=== PATIENT | female | born 1945 | race Caucasian/White ===

== ENCOUNTER 2016-12-12 23:36 | Inpatient (IN) | payer MEDICARE ==
[~2016-12-12] VITALS: Ht 167.6 cm; Wt 68.0 kg
--- NOTE | ~2016-12-12 | PR ---
[place], [place] PROGRESS NOTE NAME: LEYDA EASON UNIT #: [id number] ROOM: 309 DOCTOR: Ivette ZAIDI,TITA BIRTHDATE: [birth year] DOS: 12/18/2016 SUBJECTIVE: The patient seen and spoke with the staff. Per staff, the patient was agitated, was screaming and also got IM injection. pleasant and cooperative. In the morning, she looks a little bit sedated as she got IM injection last night. Reports doing okay, did not answer any of my question. She is taking her medication regularly and did not have any side effect from the medication also. MENTAL STATUS EXAMINATION: The patient was pleasant and cooperative. She was alert, a little bit sleepy, not oriented to place and person. Described her mood as . Affect was sleepy, tired. Thought processes with confabulation. Denied auditory or visual hallucination. No delusion or paranoia noted. She denied suicidal ideation, intent or plan. She also denied homicidal ideation, intent or plan. ASSESSMENT: Dementia with delusion. PLAN: 1. Continue current medications and care. 2. Continue redirection. 3. Encourage activity and groups. TITA ZAIDI MD CM:MALLORY [id number] Ivette ZAIDI 12/19/165 interface
--- NOTE | ~2016-12-12 | PR ---
[place], [place] PROGRESS NOTE NAME: LEYDA EASON UNIT #: [id number] ROOM: 309 DOCTOR: Ivette ZAIDI,TITA BIRTHDATE: [birth year] DOS: 12/19/2016 SUBJECTIVE: The patient seen and spoke with the staff. Per staff, the patient slept all day, but in the afternoon, she tried to climb out of the chair, hard to redirect at times. The patient was pleasant, cooperative. She seems to be sleepy. She was sleeping on the Jessica chair. When I called her name, she just looked at me and said that she is doing "fine" but then fall back to sleep again. She does not seem to be in any distress. MENTAL STATUS EXAMINATION: The patient was sleepy, not in any distress, not able to do full mental status examination because of increased sedation. ASSESSMENT: Alzheimer dementia with behavioral disturbances. PLAN: 1. Continue current medication. 2. If the patient remained sleepy like this, we may plan on reducing the Depakote tomorrow the a.m. Depakote, but continue the night one 500 mg at night. 3. Continue redirection. 4. Supportive care. TITA ZAIDI MD CM:MALLORY 99 1 Ivette ZAIDI 12/20/16131 interface
--- NOTE | ~2016-12-12 | PR ---
[place], [place] PROGRESS NOTE NAME: LEYDA EASON UNIT #: [id number] ROOM: 309 DOCTOR: Ivette ZAIDI,TITA BIRTHDATE: [birth year] DOS: 12/21/2016 SUBJECTIVE: Patient seen and spoke with the staff. Per staff, patient is doing better. She ate 50%, no p.r.n. last night, slept all night. The patient was pleasant, cooperative. She was in the day area and in Jessica chair. When I asked her, today she answered. She said that "not bad." She reports good sleep and appetite. She was not in distress. MENTAL STATUS EXAMINATION: The patient was pleasant, cooperative. Described her mood as "not bad." Affect, mood congruent. Thought processes with confabulation. She denied auditory or visual hallucination. No delusion or paranoia noted. She denied suicidal ideation, intent or plan. She also denied homicidal ideation, intent or plan. ASSESSMENT: Alzheimer's dementia with behavioral disturbances. PLAN: 1. Continue current medication and care. 2. Continue redirection. 3. Supportive care. TITA ZAIDI MD CM:MALLORY [id number] Ivette ZAIDI 12/21/16 1309 interface
--- NOTE | ~2016-12-12 | PR ---
[place], [place] PROGRESS NOTE NAME: LEYDA EASON UNIT #: [id number] ROOM: 309 DOCTOR: Ivette ZAIDI,TITA BIRTHDATE: [birth year] DOS: 12/16/2016 PSYCHIATRIC PROGRESS NOTE. SUBJECTIVE: The patient seen and chart reviewed and I spoke with the staff. Per staff, the patient is doing better than before now. She gets agitated at times, but easily redirected. She refused her medication last night. No other behavioral problems or issues. The patient was pleasant and cooperative. She was in the day area. She reports doing "good." She said that she is hungry. She is taking her medications regularly and denied any side effect. MENTAL STATUS EXAMINATION: The patient was pleasant and cooperative. She was alert, not oriented to date, month and year. Speech: Low tone. She described her mood as "good." Affect, mood congruent. Thought processes with confabulation. Denied auditory or visual hallucination. No delusion or paranoia noted. She denied any suicidal ideation, intent or plan. She also denied any homicidal ideation, intent or plan. Insight and judgment impaired. ASSESSMENT: Dementia with behavioral disturbances. PLAN: 1. Continue current medication and care. Dr. Leung is switching her from Aricept to Exelon. We need to see the effect of it. 2. Continue redirection. 3. Maximize and titrate the medication if needed to stabilize the patient. TITA ZAIDI MD CM:PNAMY [id number] Ivette ZAIDI 12/16/16 2340 interface
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
--- NOTE | ~2016-12-12 | PR ---
[place], [place] PROGRESS NOTE NAME: LEYDA EASON UNIT #: [id number] ROOM: 309 DOCTOR: JYOTI BOWENS MD BIRTHDATE: [birth year] DOS: 12/14/2016 INTERVAL NOTE CHIEF COMPLAINT: "Good morning." SUMMARY OF THE VISIT: The patient was interviewed in her bedroom. She was resting quietly in bed. She kept her eyes closed for the most part. She did open them briefly when I called out her name. She whispered very quietly, responses to me that were soft and simple, very short and at times inappropriate. There was no agitation or aggression noted; however, she was pleasant for the most part during the interview process. MENTAL STATUS: She remains alert and oriented to self. It is unclear if she realizes she is in the hospital. She is certainly not oriented to time. Mood does still seem to be somewhat labile at times and affect at times is inappropriate. She has a great deal of processing difficulty and short term memory is exceedingly poor. PLAN: I will increase Exelon patch from 4.6 mg to 9.5 mg a day. I will also check a valproic acid level in the a.m. to tract that it is therapeutic. We will engage in individual and francisco milieu activity, returning to the least restrictive environment when psychiatrically stable. JYOTI BOWENS MD CM:PNTRANS [phone] JYOTI BOWENS MD 12/14/16 1004 interface
--- NOTE | ~2016-12-12 | PR ---
[place], [place] PROGRESS NOTE NAME: LEYDA EASON UNIT #: [id number] ROOM: 309 DOCTOR: Ivette ZAIDI,TITA BIRTHDATE: [birth year] DOS: 12/22/2016 SUBJECTIVE: Patient seen and spoke with the staff. Per staff, patient ate 50%, no p.r.n. last night, slept well, no other behavioral problems or issues. She yells at a time per staff, but easily redirectable. The patient was in the Jessica chair close to the nursing station, she reports doing good. Denied any problem. She was not in any distress. She is medication compliant and did not have any side effect. MENTAL STATUS EXAMINATION: The patient was somewhat sleepy. Described her mood as "good." Affect and mood congruent. Not in distress. Thought processes with confabulation. Denied auditory or visual hallucination. No delusion or paranoia noted. Denied suicidal ideation, intent or plan. She also denied homicidal ideation, intent or plan. Insight, judgment impaired. ASSESSMENT: Alzheimer's dementia with behavioral disturbances. PLAN: 1. Continue current medication. 2. Continue redirection. 3. Supportive care. TITA ZAIDI MD CM:PNAMY [id number] Ivette ZAIDI 12/23/16 1406 interface
--- NOTE | ~2016-12-12 | PR ---
[place], [place] PROGRESS NOTE NAME: LEYDA EASON UNIT #: [id number] ROOM: 309 DOCTOR: Ivette ZAIDI,TITA BIRTHDATE: [birth year] DOS: 12/17/2016 SUBJECTIVE: The patient seen and spoke with the staff. Per staff, the patient was anxious in the morning, got p.r.n. Ativan and seems to be worse today. Per staff, the patient was yelling earlier. The patient was pleasant, cooperative. She was in her room. She said that "I'm fine," but then did not answer any of my questions. She seems not to be in any distress. She is compliant with her medication. MENTAL STATUS EXAMINATION: The patient was pleasant, cooperative. Described her mood as "okay." Affect, mood congruent. Thought processes with confabulation. Denied auditory or visual hallucinations. No overt delusion or paranoia noted. She denied suicidal ideation, intent or plan. She also denied homicidal ideation, intent or plan. Insight and judgment impaired. ASSESSMENT: Dementia with delusion. PLAN: 1. Continue current medications and care. 2. Continue redirection. 3. Supportive care. TITA ZAIDI MD CM:PNTRANS [phone] Ivette ZAIDI 12/18/16109 interface
--- NOTE | ~2016-12-12 | PR ---
[place], [place] PROGRESS NOTE NAME: LEYDA EASON UNIT #: [id number] ROOM: 309 DOCTOR: Ivette ZAIDI,TITA BIRTHDATE: [birth year] DOS: 12/23/2016 PSYCHIATRIC PROGRESS NOTE SUBJECTIVE: The patient seen and spoke with the staff. Per staff, the patient is doing better than before. She yells out at times, but no other behavior problems or issues. She did not receive any medication. The patient was pleasant, cooperative. She was in the dining area in a Jessica chair. When I called her name, she actually got up and said that she is doing "fine." Then she said that she is tired of waiting. When I asked said that what she is waiting for, she did not answer any of my questions. She was not in any distress. She reports good sleep and appetite. MENTAL STATUS EXAMINATION: The patient was pleasant, cooperative, described her mood as "okay." Affect, mood congruent. Thought processes with confabulation. She denied auditory or visual hallucination. No delusion or paranoia noted. She denied suicidal ideation, intent or plan. She also denied homicidal ideation, intent or plan. ASSESSMENT: Alzheimer dementia with behavioral disturbances. PLAN: 1. Continue current medication and care. 2. Continue redirection. 3. Discharge planning. TITA ZAIDI MD CM:MALLORY [id number] Ivette ZAIDI 12/23/16 1313 interface
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
--- NOTE | ~2016-12-12 | PR ---
[place], [place] PROGRESS NOTE NAME: LEYDA EASON UNIT #: [id number] ROOM: 309 DOCTOR: Ivette ZAIDI,TITA BIRTHDATE: [birth year] DOS: 12/20/2016 PSYCHIATRIC PROGRESS NOTE SUBJECTIVE: The patient seen and spoke with the staff. Per staff, the patient slept 5-6 hours yesterday, somewhat agitated, got p.r.n. After that, she slept all night. When I went to see the patient, she was in a Jessica chair close to the nursing station, she was sleeping deep. When I called her name, she got up and said she is doing "okay," but then fell back to sleep again. She was not able to answer any of my question. MENTAL STATUS EXAMINATION: The patient was pleasant, cooperative. She was sleepy. She woke up. She described her mood as "okay" and then fell back to sleep again. She was not in any distress, not able to do full mental status examination. ASSESSMENT: Dementia with behavioral disturbances. PLAN: 1. I will reduce her morning Depakote to 250 mg. 2. I will change her bedtime Depakote at 6:00 p.m. 3. Continue redirection. 4. Supportive care. TITA ZAIDI MD CM:MALLORY 2 Ivette ZAIDI 12/20/16922 interface
[2016-12-13] MEDS ORDERED: HYDROCHLOROTH12.5 M3 PO (00:26)
[2016-12-13] MEDS ORDERED: NAMZARIC 28 MG1 EACH PO (00:27)
[2016-12-13] MEDS ORDERED: B121000 MCG/1 IM (00:30)
[2016-12-13] MEDS ORDERED: TOPROL XL50 M1 PO (00:32)
[2016-12-13] MEDS ORDERED: RISPERIDONE0.5 MG PO (00:39)
[2016-12-13] MEDS ORDERED: MUCINEX1200 M1 PO (00:46)
[2016-12-13] MEDS ORDERED: VITAMIN D50000 UNIT PO (00:48)
[2016-12-13] MEDS ORDERED: DULCOLAX5 M1 PO (00:49)
[2016-12-13] MEDS ORDERED: DULCOLAX10 M1 R (00:50)
[2016-12-13] MEDS ORDERED: TUMS ULTRA400 MG PO (00:54)
[2016-12-13 01:30] VITALS: BP 122/86
[2016-12-13 01:40] VITALS: BP 122/84
[2016-12-13 07:16] LABS: BASO # 0.1 10*3/uL (0.0-0.1); BASO % 0.8 % (0.0-1.0); EOS # 0.2 10*3/uL (0.0-0.4); EOS % 3.5 % (1.0-4.0); HEMATOCRIT 40.1 % (37.0-47.0); HEMOGLOBIN 13.5 g/dl (12.0-16.0); LYMPH # 1.5 10*3/uL (1.3-4.4); LYMPH % 23.1 % (27.0-41.0); MEAN CELL VOLUME 95.2 fl (81.0-99.0); MEAN CORPUSCULAR HGB 32.1 pg (27.0-31.0); MEAN CORPUSCULAR HGB CONC 33.7 g/dl (33.0-37.0); MEAN PLATELET VOLUME 10.2 fl (9.6-12.3); MONO # 0.6 10*3/uL (0.1-1.0); MONO % 8.5 % (3.0-9.0); NEUT # 4.2 10*3/uL (2.3-7.9); NEUT % 63.8 % (47.0-73.0); PLATELET COUNT AUTOMATED 216 10*3/uL (130-400); RED BLOOD COUNT 4.21 10*6/uL (4.10-5.10); RED CELL DISTRI WIDTH 12.3 % (0-14.5); WHITE BLOOD COUNT 6.6 10*3/uL (4.8-10.8)
[2016-12-13 07:32] LABS: ALBUMIN 3.1 gm/dl (3.1-4.5); ALKALINE PHOSPHATASE 69 U/L (45-117); BILIRUBIN, TOTAL 0.4 mg/dl (0.2-1.0); BUN 11 mg/dl (7-24); CARBON DIOXIDE 27 mmol/L (21-32); CHLORIDE 104 mmol/L (98-107); EST GLOM FILT AFRICAN AMERICAN > 60 ml/min; GLUCOSE 83 mg/dL (65-99); MAGNESIUM 2.1 mg/dL (1.5-2.1); PHOSPHOROUS 3.4 mg/dL (2.5-4.9); POTASSIUM 3.6 mmol/L (3.5-5.1); SGOT/AST 16 IU/L (3-35); SGPT/ALT 15 U/L (12-78); SODIUM 139 mmol/L (136-145); TOTAL PROTEIN 6.2 gm/dL (6.4-8.2)
[2016-12-13 07:34] LABS: CHOLESTEROL 178 mg/dL (<200); HDL CHOLESTEROL 52 mg/dl (40-60); LDL CHOLESTEROL 107 mg/dL (9-159); TRIGLYCERIDES 96 mg/dl (<150); VLDL CHOLESTEROL 19 mg/dL (6-40)
[2016-12-13 08:08] LABS: VITAMIN D, 25-HYDROXY 41.9 ng/mL (30-100)
[2016-12-13 08:12] VITALS: BP 126/80
[2016-12-13 17:49] LABS: BILIRUBIN NEGATIVE (NEGATIVE); BLOOD NEGATIVE (NEGATIVE); CLARITY SL CLOUDY (CLEAR); COLOR YELLOW (YELLOW); GLUCOSE NEGATIVE (NEGATIVE); KETONE NEGATIVE (NEGATIVE); LEUKO ESTERASE 1+ (NEGATIVE); NITRITE NEGATIVE (NEGATIVE); PROTEIN NEGATIVE (NEGATIVE); SPECIFIC GRAVITY 1.025 (1.005-1.030)
[2016-12-13 18:04] LABS: BACTERIA 3+; RBC 0-2 rbc/hpf (0-2); URINE REFLEX COMMENT YES (NO)
[2016-12-13 20:00] VITALS: BP 123/71; BP 143/90
[2016-12-14 07:54] VITALS: BP 106/75
[2016-12-14 20:00] VITALS: BP 128/83
[2016-12-15 08:07] VITALS: BP 124/78
[2016-12-15 20:00] VITALS: BP 115/68
[2016-12-16 07:56] VITALS: BP 121/84
[2016-12-16 20:08] VITALS: BP 121/88
[2016-12-17 08:06] VITALS: BP 127/81
[2016-12-17 20:00] VITALS: BP 128/88
[2016-12-18 07:56] VITALS: BP 126/72
[2016-12-18 20:01] VITALS: BP 153/86
[2016-12-19 07:45] VITALS: BP 143/81
[2016-12-19 20:00] VITALS: BP 125/82
[2016-12-20 08:31] VITALS: BP 116/83
[2016-12-20 20:00] VITALS: BP 152/87
[2016-12-21 08:35] VITALS: BP 119/69
[2016-12-21 20:14] VITALS: BP 121/80
[2016-12-22 10:03] VITALS: BP 131/81
[2016-12-22 20:00] VITALS: BP 141/84
[2016-12-23 08:00] VITALS: BP 152/83
[2016-12-23 19:48] VITALS: BP 152/89
[2016-12-24 08:00] VITALS: BP 106/61
[2016-12-24] MEDS ORDERED: DEPAKOTE250 MG PO (11:50)
[2016-12-24] MEDS ORDERED: DEPAKOTE500 MG PO (11:51)
[2016-12-24] MEDS ORDERED: NAMENDA10 MG PO (11:52)
[2016-12-24] MEDS ORDERED: EXELON1 EAC1 T (11:55)
[2016-12-24] MEDS ORDERED: VITAMIN D400 I1 PO (11:57)
== END 2016-12-24 12:40 | disposition home or self-care (01) | DRG 885 ==
LOC: 3N 23:36
PROVIDERS: Nurse Practitioner Adult Health; Psychiatry & Neurology Psychiatry; Student in an Organized Health Care Education/Training Program
DX: F23 Brief psychotic disorder (principal); G30.9 Alzheimer's disease, unspecified; F02.81 Dementia in other diseases classified elsewhere, unspecified severity, with behavioral disturbance; F63.9 Impulse disorder, unspecified; I10 Essential (primary) hypertension; E55.9 Vitamin D deficiency, unspecified; E53.8 Deficiency of other specified B group vitamins; R05 Cough; F41.9 Anxiety disorder, unspecified; Z79.899 Other long term (current) drug therapy